=== PATIENT | male | born 2000 | race Caucasian/White ===

== ENCOUNTER 2020-06-11 12:22 | Emergency (ER) | payer OTHER, SELFPAY ==
[2020-06-11 12:37] VITALS: BP 131/70; PULSE 74; RESP 16; TEMP 36.7; O2SAT 98; BMI 56.9
--- NOTE | 2020-06-11 13:04 | XR_ITS ---
EXAMINATION: XR ANKLE, RIGHT CLINICAL INFORMATION: Trauma COMPARISON: None TECHNIQUE: AP, lateral, and mortise views of the right ankle. FINDINGS: The bones and soft tissues are normal. No fracture. Alignment is anatomic. Joint spaces are maintained. No joint effusion. IMPRESSION: Normal right ankle.
--- NOTE | 2020-06-11 13:07 | ED.LOWEXIN ---
HPI - Extremity Injury (Lower) General Chief Complaint: Extremity Injury, Lower Stated Complaint: R ANKLE INJ NON WORK Time Seen by Provider: 06/11/20 13:04 Source: patient Mode of arrival: ambulatory Limitations: no limitations History of Present Illness HPI Narrative: 19 y/o here with right ankle pain after he stepped on a rock and rolled it a few days ago. Able to ambulate but it hurts and he has some bruising so mom wanted him to come in for an X-ray. He has been wearing an air cast, icing, elevating and taking ibuprofen with good effect. complaint: ankle injury Related Data Allergies Allergy/AdvReac Type Severity Reaction Status Date / Time No Known Allergies Allergy Verified 06/11/20 12:39 Review of Systems Review of Systems: Constitutional: No Fever, No Chills Cardiovascular: No Chest Pain, No SOB, No Orthopnea, No Edema Respiratory: No Cough, No Sputum, No Wheezing, No dyspnea Gastrointestinal: No Nausea, No Vomiting Musculoskeletal: + joint pain, No Myalgias Skin: No Skin Lesions, No rash Neuro: No Weakness, No Numbness, No Dizziness, No Headache Heme/Lymph: + Bruising, No Lymphadenopathy PMFSH Past Medical History Attestation statement: The following information was validated with the patient. Medical History (Updated 06/11/20 @ 13:49 by CLEMENTE Michaud) No known health problems Social History Social History Advance Directives: No Advance Directives Information Provided: No Physical Exam Vital Signs: Vital Signs: Vital Signs Temp Pulse Resp BP Pulse Ox 06/11/20 12:37 98.0 F 74 16 131/70 98 Body Mass Index 56.9 Appearance: Alert. Oriented X3. No acute distress. HEENT: normal inspection Respiratory: No respiratory distress. Skin: Skin warm and dry. Normal skin color. Normal skin turgor. No rashes. Extremities: mild right ankle swelling superior to lateral malleolus, ecchymosis of anterior ankle and lateral heel. fulL ROM with some pain. no bony tenderness. Neuro: Oriented X 3. No motor deficit. No sensory deficit. Course Course Course Narrative: XR pending to r/u fracture. he is comfortable, able to ambulate. Reevaluation(s) Reevaluation #1: XR negative. Will place in PARISH wrap to help with swelling. Stable for d/c. MDM - Extremity Injury (Lower) Differential Diagnosis Differential diagnosis: Likely ankle sprain and strain Discharge Plan Discharge Clinical Impression: Ankle sprain and strain Patient Disposition: Home, Self-Care Instructions: Ankle Sprain (ED) Additional Instructions: Your X-ray did not show any acute fractures. Weight bearing as tolerated. Wear an PARISH wrap to help with swelling and discomfort. Continue taking Ibuprogen as needed for pain. Ice several times per day and elevate. Follow up with your Primary Care doctor as needed.
== END 2020-06-11 13:55 | disposition home or self-care (01) ==
PROVIDERS: Emergency Provider Emergency Medicine
DX: S93.401A Sprain of unspecified ligament of right ankle, initial encounter (principal); S96.911A Strain of unspecified muscle and tendon at ankle and foot level, right foot, initial encounter; X50.1XXA Overexertion from prolonged static or awkward postures, initial encounter; Y93.01 Activity, walking, marching and hiking; Y92.9 Unspecified place or not applicable; Y99.9 Unspecified external cause status
CPT/HCPCS: 73610; 99283